=== PATIENT | male | born 1965 | race Caucasian/White ===

== ENCOUNTER 2016-11-12 01:48 | Emergency (ER) | payer MEDICAID ==
[~2016-11-12] VITALS: Ht 165.1 cm; Wt 90.7 kg
[~2016-11-12 01:48] MED LIST: OXYC80TA40 PO
[2016-11-12] MEDS ORDERED: predniSONE 10 MG TABLET PO ONE (02:15)
[2016-11-12] MEDS ORDERED: FAMOTIDINE 20 MG TABLET PO ONE (02:15)
[2016-11-12] MEDS ORDERED: diphenhydrAMINE 50 MG CAPSULE PO ONE (02:15)
[2016-11-12] MEDS ORDERED: EPINEPHRINE 1 MG/1 ML AMP SQ ONE (02:15)
[2016-11-12] MEDS ORDERED: predniSONE 50 MG TABLET ONE (02:18)
[2016-11-12] MEDS ORDERED: FAMOTIDINE 20 MG TABLET ONE (02:18)
[2016-11-12] MEDS ORDERED: diphenhydrAMINE 50 MG CAPSULE ONE (02:18)
[2016-11-12] MEDS ORDERED: predniSONE 10 MG TABLET ONE (02:18)
[2016-11-12] MEDS ORDERED: EPINEPHRINE 1:10,000 1 MG/10 ML DISP.SYRIN ONE (02:19)
[2016-11-12] MEDS ORDERED: EPINEPHRINE 1 MG/1 ML AMP ONE (02:19)
--- NOTE | 2016-11-12 02:23 | NUR ---
Patient discharged to home in stable conditon. Written and verbal after care instructions given. Patient verbalizes understanding of instructions. Ambulated from ER with stable gait. All belongings with patient.
[2016-11-12 02:25] VITALS: BP 130/75
== END 2016-11-12 02:25 | disposition home or self-care (01) ==
LOC: ER 01:58
DX: L50.9 Urticaria, unspecified (principal); G43.909 Migraine, unspecified, not intractable, without status migrainosus; F10.20 Alcohol dependence, uncomplicated; F17.200 Nicotine dependence, unspecified, uncomplicated
CPT/HCPCS: A4663; J0171; J7512; Q0163

== ENCOUNTER 2017-11-27 07:02 | Emergency (ER) | payer BC, OTHER ==
[~2017-11-27] VITALS: Ht 167.6 cm; Wt 99.8 kg
--- NOTE | 2017-11-27 07:32 | NUR ---
Dr Gutierrez at the bedside for MSE.
[2017-11-27] MEDS ORDERED: DOCUSATE SODIUM 100 MG/10 ML LIQUID UDC ONE (08:05)
[2017-11-27] MEDS ORDERED: DOCUSATE SODIUM 100 MG/10 ML LIQUID UDC OT ONE (08:15)
--- NOTE | 2017-11-27 08:52 | NUR ---
RT ear irrigated per MD order.
[2017-11-27 09:10] VITALS: BP 147/96
--- NOTE | 2017-11-27 09:10 | NUR ---
Patient discharged to home in stable conditon. Written and verbal after care instructions given. Patient verbalizes understanding of instructions.
== END 2017-11-27 09:11 | disposition home or self-care (01) ==
LOC: ER 07:02
DX: H61.21 Impacted cerumen, right ear (principal); F17.210 Nicotine dependence, cigarettes, uncomplicated; Z79.891 Long term (current) use of opiate analgesic
CPT/HCPCS: A4663